=== PATIENT | male | born 1960 | race Caucasian/White ===

== ENCOUNTER 2022-01-22 14:24 | Emergency (ER) | payer SELFPAY ==
[2022-01-22 14:50] LABS: Absolute Lymphocytes (CBC) 2.1 K/uL (0.7-4.9); Hematocrit 42.9 % (39.6-49.0); Lymphocytes % 19.6 % (15.3-44.8); RBC Red Blood Cell Count 4.66 M/uL (4.33-5.43)
[2022-01-22 14:51] LABS: Protime INR 1.02
[2022-01-22 15:00] LABS: Albumin 3.6 g/dL (3.4-5.0); BUN Blood Urea Nitrogen 15 mg/dL (7-18); Bicarbonate 26 mmol/L (21-32); Glomerular Filtration Rate 48 ml/min (=/>90); Glucose Level 91 mg/dL (74-106); Sodium Level 139 mmol/L (136-145)
[2022-01-22 15:01] LABS: AST/SGOT 22 U/L (15-37); Bilirubin Direct < 0.1 mg/dL (0-0.2); Magnesium 2.1 mg/dL (1.8-2.4); Potassium 4.1 mmol/L (3.5-5.1)
[2022-01-22] MEDS ORDERED: FOLIC ACID 5 MG/ML VIAL ONE (15:04)
[2022-01-22] MEDS ORDERED: NA CHLORIDE 0.9% 1,000 ML ONE ×2 (15:04→16:13)
--- NOTE | 2022-01-22 15:04 | RAD REPORT ---
EXAM DESCRIPTION: CT - Ct Stroke Brain Wo Cont - 01/22/2022 2:54 pm CLINICAL HISTORY: Slurred speech COMPARISON: none TECHNIQUE: Computed axial tomography of the head was obtained. All CT scans are performed using dose optimization technique as appropriate and may include automated exposure control or mA/KV adjustment according to patient size. FINDINGS: An intracranial bleed is not seen . The ventricles are normal in caliber. No extra-axial fluid collection is noted. 2.5 centimeter low-density area right frontal lobe. 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 IMPRESSION: 2.5 centimeter low-density area right frontal lobe has more of the appearance of being a n old than acute infarction. If patient continues to have symptoms to suggest an acute infarct MRI of the brain would be recommend ed. Fred of the emergency room was notified at 2:39 p.m. January 22, 2022
[2022-01-22 15:06] LABS: ALT/SGPT 26 U/L (12-78); Alkaline Phosphatase 66 U/L (45-117); Bilirubin Total 0.3 mg/dL (0.2-1.0); NT PRO-BNP 136 pg/mL (<125); Protein, Total 6.9 g/dL (6.4-8.2)
--- OUTSIDE RECORDS SUMMARY | 2022-01-22 15:15 | XMS REPORT | Continuity of Care Document ---
:[address] [facility] t Address [address] [place] [address] Care Team Providers Name Role Phone Pcp, Does Not Have A Primary Care Physician RIDGE Attending Clinician Unavailable Ridge PIÑA Attending Clinician Doctor Unassigned, Name Attending Clinician Unavailable Juanito Alvarado DO Attending Clinician Nikhil PIÑA Attending Clinician Unavailable Payers Payer Name Policy Type Policy Number Effective Date Expiration Date S ource Problems Condition Condition Condition Status Onset Resolution Last Treating Co mments Source Name Details Category Date Date Treatment Clinician Date Coronary Coronary Disease Active Unive rs artery artery 01-13 ity of disease disease 00:00: [place] involving involving 00 [facility] [place] coronary coronary artery of artery of [place] heart heart without without angina angina pectoris pectoris Atrial Atrial Disease Active [facility] fibrillati fibrillati -17 it y of on, on, 00:00: [place] unspecifie unspecifie 00 Me dical d type d type Branch Tobacco Tobacco Disease Active [facility] use use -17 ity of 00:00: [place] 00 Medical Branch Tobacco Tobacco Disease Active [facility] use use - ity of 00:00: [place] 00 Medical Branch Coronary Coronary Disease Active 2017-0 Unive rs artery artery 5-17 ity of disease disease 00:00: [place] involving involving 00 [facility] [place] coronary coronary artery of artery of [place] heart heart without without angina angina pectoris pectoris Allergies, Adverse Reactions, Alerts Allergy Allergy Status Severity Reaction(s) Onset Inactive Treating Comm ents Source Name Type Date Date Clinician No Known DA Active [facility] Allergie 5-12 Clear s 00:00: [place] 00 [facility] NO KNOWN Drug Active Univers ALLERGIE Class [facility]y of [facility] [place] [facility] [place] Social History Social Habit Start Date Stop Date Quantity Comments Source Exposure to Not sure [facility] SARS-CoV-2 Medical Branch (event) Tobacco use and 2018-10-12 2018-10-12 Current user Univers [facility] exposure 00:00:00 00:00:00 Medical Branch Sex Ass[birth year] [facility] 00:00:00 00:00:00 Medical Branch Smoking Status Start Date Stop Date Source Current every day [facility]oker 2018[facility]10[facility]12 [facility] F[facility] Start Stop Current Ordering Indication Dosage Frequency Signature Comments Components Source Medication Medication Date Date Medication? Clinician (SIG) Name Name lisinopriL 2020-08 Yes [id number] 20mg Take 1 U nivers (PRINIVIL) 1-09 tablet by ity of 20 mg 00:00: mouth [place] tablet 00 daily. Medical Please Branch keep next follow up appointmen t for future refills. lisinopriL 2020-08 Yes [id number] 20mg Take 1 U nivers (PRINIVIL) 1-09 tablet by ity of 20 mg 00:00: mouth [place] tablet 00 daily. Medical Please Branch keep next follow up appointmen t for future refills. lisinopriL 2020-08 Yes [id number] 20mg Take 1 U nivers (PRINIVIL) 1-09 tablet by ity of 20 mg 00:00: mouth [place] tablet 00 daily. Medical Please Branch keep next follow up appointmen t for future refills. pantoprazol Yes 40mg Take 1 Univ ers e 40 mg EC 8-23 tablet by ity of tablet 00:00: mouth [place] 00 daily. Medical Branch pantoprazol Yes 40mg Take 1 Univ ers e 40 mg EC 8-23 tablet by ity of tablet 00:00: mouth daily. Medical Branch pantoprazol 2021-0 Yes 40mg Take 1 Univ ers e 40 mg EC 8-23 tablet by ity of tablet 00:00: mouth daily. Medical Branch pantoprazol 2020-0 Yes 40mg Take 1 Univ ers e 40 mg EC 8-23 tablet by ity of tablet 00:00: mouth daily. Medical Branch clopidogreL 1-0 Yes TAKE 1 Univ ers 75 mg 7-05 TABLET BY ity of tablet 00:00: MOUTH ONCE DAILY Medical Branch clopidogreL 2021-0 Yes TAKE 1 Univ ers 75 mg 7-05 TABLET BY ity of tablet 00:00: MOUTH ONCE DAILY Medical Branch clopidogreL 1-0 Yes TAKE 1 Univ ers 75 mg 7-05 TABLET BY ity of tablet 00:00: MOUTH ONCE DAILY Medical Branch clopidogreL 1-0 Yes TAKE 1 Univ ers 75 mg 7-05 TABLET BY ity of tablet 00:00: MOUTH ONCE DAILY Medical Branch clopidogreL 1-0 Yes TAKE 1 Univ ers 75 mg 7-05 TABLET BY ity of tablet 00:00: MOUTH ONCE DAILY Medical Branch clopidogreL 2021-0 Yes TAKE 1 Univ ers 75 mg 7-05 TABLET BY ity of tablet 00:00: MOUTH ONCE DAILY Medical Branch clopidogreL 2021-0 Yes TAKE 1 Univ ers 75 mg 7-05 TABLET BY ity of tablet 00:00: MOUTH ONCE DAILY Medical Branch clopidogreL 1-0 Yes TAKE 1 Univ ers 75 mg 4-08 TABLET BY ity of tablet 00:00: MOUTH ONCE DAILY Medical Branch clopidogreL 2021-0 2021- No TAKE 1 Uni vers 75 mg 4-08 07-05 TABLET BY ity of tablet 00:00: [place]CE [place] DA[place] [facility] carvediloL 2020-0 Yes [id number] 6.25mg Take 2 Univers 3.125 mg 8-13 tablets by ity o f tablet 00:00: mouth (two) Medical times Branch daily with meals. carvediloL 2020-0 Yes [id number] 6.25mg Take 2 Univers 3.125 mg 8-13 tablets by ity o f tablet 00:00: mouth (two) Medical times Branch daily with meals. carvediloL 2020-0 Yes [id number] 6.25mg Take 2 Univers 3.125 mg 8-13 tablets by ity o f tablet 00:00: mouth (two) Medical times Branch daily with meals. carvediloL 2020-0 Yes [id number] 6.25mg Take 2 [facility] 3.125 mg 8-13 tablets by ity o f tablet 00:00: mouth (two) Medical times Branch daily with meals. carvediloL 2020-0 Yes [id number] 6.25mg Take 2 Univers 3.125 mg 8-13 tablets by ity o f tablet 00:00: mouth (two) Medical times Branch daily with meals. carvediloL 2020-0 Yes [id number] 6.25mg Take 2 Univers 3.125 mg 8-13 tablets by ity o f tablet 00:00: mouth (two) Medical times Branch daily with meals. carvediloL 2020-0 Yes [id number] 6.25mg Take 2 Univers 3.125 mg 8-13 tablets by ity o f tablet 00:00: mouth (two) Medical times Branch daily with meals. carvediloL 2020-0 Yes [id number] 6.25mg Take 2 Univers 3.125 mg 8-13 tablets by ity o f tablet 00:00: mouth (two) Medical times Branch daily with meals. carvediloL 2020-0 Yes [id number] 6.25mg Take 2 Univers 3.125 mg 8-13 tablets by ity o f tablet 00:00: mouth (two) Medical times Branch daily with meals. carvediloL 2020-0 Yes [id number] 6.25mg Take 2 Univers 3.125 mg 8-13 tablets by ity o f tablet 00:00: mouth (two) Medical times Branch daily with meals. carvediloL 2020-0 Yes [id number] 6.25mg Take 2 Univers 3.125 mg 8-13 tablets by ity o f tablet 00:00: mouth (two) Medical times Branch daily with meals. carvediloL 2020-0 Yes [id number] 6.25mg Take 2 Univers 3.125 mg 8-13 tablets by ity o f tablet 00:00: mouth (two) Medical times Branch daily with meals. carvediloL 2020-0 Yes [id number] 6.25mg Take 2 Univers 3.125 mg 8-13 tablets by ity o f tablet 00:00: mouth 2 (two) Medical times Branch daily with meals. carvediloL 2020-0 Yes [id number] 6.25mg Take 2 Univers 3.125 mg 8-13 tablets by ity o f tablet 00:00: mouth 2 (two) Medical times Branch daily with meals. carvediloL 2020-0 Yes [id number] 6.25mg Take 2 Univers 3.125 mg 8-13 tablets by ity o f tablet 00:00: mouth 2 (two) Medical times Branch daily with meals. pantoprazol 2020-0 Yes 40mg Take 1 Univ ers e 40 mg EC 7-28 tablet by ity of tablet 00:00: mouth [place] 00 daily. Medical Branch atorvastati 2020-0 Yes 80mg Take 1 Univ ers n 80 mg 7-28 tablet by ity of tablet 00:00: mouth at [place] 00 bedtime. Medical Branch clopidogreL 2020-0 Yes TAKE 1 Univ ers 75 mg 7-28 TABLET BY ity of tablet 00:00: MOUTH ONCE [place] 00 DAILY Medical Branch metoprolol 2020-0 Yes TAKE 1 Unive rs succinate 7-28 TABLET BY ity o f XL 25 mg 24 00:00: MOUTH ONCE [place] hr tablet 00 DAILY Medical Branch lisinopril 2020-0 Yes 20mg Take 1 Unive rs (PRINIVIL) 7-28 tablet by ity of 20 mg 00:00: mouth [place] tablet 00 daily. Medical Branch aspirin 81 2020-0 Yes 81mg Take 1 Unive rs mg EC 7-28 tablet by ity of tablet 00:00: mouth [place] 00 daily. Medical Branch pantoprazol 2020-0 Yes 40mg Take 1 Univ ers e 40 mg EC 7-28 tablet by ity of tablet 00:00: mouth [place] 00 daily. Medical Branch atorvastati 2020-0 Yes 80mg Take 1 Univ ers n 80 mg 7-28 tablet by ity of tablet 00:00: mouth at [place] 00 bedtime. Medical Branch clopidogreL 2020-0 Yes TAKE 1 Univ ers 75 mg 7-28 TABLET BY ity of tablet 00:00: MOUTH ONCE [place] 00 DAILY Medical Branch metoprolol 2020-0 Yes TAKE 1 Unive rs succinate 7-28 TABLET BY ity o f XL 25 mg 24 00:00: MOUTH ONCE [place] hr tablet 00 DAILY Medical Branch lisinopril 2020-0 Yes 20mg Take 1 Unive rs (PRINIVIL) 7-28 tablet by ity of 20 mg 00:00: mouth [place] tablet 00 daily. Medical Branch aspirin 81 2020-0 Yes 81mg Take 1 Unive rs mg EC 7-28 tablet by ity of tablet 00:00: mouth [place] 00 daily. Medical Branch pantoprazol 2020-0 Yes 40mg Take 1 Univ ers e 40 mg EC 7-28 tablet by ity of tablet 00:00: mouth [place] 00 daily. Medical Branch atorvastati 2020-0 Yes 80mg Take 1 Univ ers n 80 mg 7-28 tablet by ity of tablet 00:00: mouth at [place] 00 bedtime. Medical Branch clopidogreL 2020-0 Yes TAKE 1 Univ ers 75 mg 7-28 TABLET BY ity of tablet 00:00: MOUTH ONCE [place] 00 DAILY Medical Branch metoprolol 2020-0 Yes TAKE 1 Unive rs succinate 7-28 TABLET BY ity o f XL 25 mg 24 00:00: MOUTH ONCE [place] hr tablet 00 DAILY Medical Branch lisinopril 2020-0 Yes 20mg Take 1 Unive rs (PRINIVIL) 7-28 tablet by ity of 20 mg 00:00: mouth [place] tablet 00 daily. Medical Branch aspirin 81 2020-0 Yes 81mg Take 1 Unive rs mg EC 7-28 tablet by ity of tablet 00:00: mouth [place] 00 daily. Medical Branch pantoprazol 2020-0 Yes 40mg Take 1 Univ ers e 40 mg EC 7-28 tablet by ity of tablet 00:00: mouth [place] 00 daily. Medical Branch atorvastati 2020-0 Yes 80mg Take 1 Univ ers n 80 mg 7-28 tablet by ity of tablet 00:00: mouth at [place] 00 bedtime. Medical Branch clopidogreL 2020-0 Yes TAKE 1 Univ ers 75 mg 7-28 TABLET BY ity of tablet 00:00: MOUTH ONCE [place] 00 DAILY Medical Branch metoprolol 2020-0 Yes TAKE 1 Unive rs succinate 7-28 TABLET BY ity o f XL 25 mg 24 00:00: MOUTH ONCE [place] hr tablet 00 DAILY Medical Branch lisinopril 2020-0 Yes 20mg Take 1 Unive rs (PRINIVIL) 7-28 tablet by ity of 20 mg 00:00: mouth [place] tablet 00 daily. Medical Branch aspirin 81 2020-0 Yes 81mg Take 1 Unive rs mg EC 7-28 tablet by ity of tablet 00:00: mouth [place] 00 daily. Medical Branch pantoprazol 2020-0 Yes 40mg Take 1 Univ ers e 40 mg EC 7-28 tablet by ity of tablet 00:00: mouth [place] 00 daily. Medical Branch atorvastati 2020-0 Yes 80mg Take 1 Univ ers n 80 mg 7-28 tablet by ity of tablet 00:00: mouth at [place] 00 bedtime. Medical Branch clopidogreL 2020-0 Yes TAKE 1 Univ ers 75 mg 7-28 TABLET BY ity of tablet 00:00: MOUTH ONCE [place] 00 DAILY Medical Branch lisinopril 2020-0 Yes 20mg Take 1 Unive rs (PRINIVIL) 7-28 tablet by ity of 20 mg 00:00: mouth [place] tablet 00 daily. Medical Branch aspirin 81 2020-0 Yes 81mg Take 1 Unive rs mg EC 7-28 tablet by ity of tablet 00:00: mouth [place] 00 daily. Medical Branch pantoprazol 2020-0 Yes 40mg Take 1 Univ ers e 40 mg EC 7-28 tablet by ity of tablet 00:00: mouth [place] 00 daily. Medical Branch atorvastati 2020-0 Yes 80mg Take 1 Univ ers n 80 mg 7-28 tablet by ity of tablet 00:00: mouth at [place] 00 bedtime. Medical Branch clopidogreL 2020-0 Yes TAKE 1 Univ ers 75 mg 7-28 TABLET BY ity of tablet 00:00: MOUTH ONCE [place] 00 DAILY Medical Branch lisinopril 2020-0 Yes 20mg Take 1 Unive rs (PRINIVIL) 7-28 tablet by ity of 20 mg 00:00: mouth [place] tablet 00 daily. Medical Branch aspirin 81 2020-0 Yes 81mg Take 1 Unive rs mg EC 7-28 tablet by ity of tablet 00:00: mouth [place] 00 daily. Medical Branch pantoprazol 2020-0 Yes 40mg Take 1 Univ ers e 40 mg EC 7-28 tablet by ity of tablet 00:00: mouth [place] 00 daily. Medical Branch atorvastati 2020-0 Yes 80mg Take 1 Univ ers n 80 mg 7-28 tablet by ity of tablet 00:00: mouth at [place] 00 bedtime. Medical Branch clopidogreL 2020-0 Yes TAKE 1 Univ ers 75 mg 7-28 TABLET BY ity of tablet 00:00: MOUTH ONCE [place] 00 DAILY Medical Branch lisinopril 2020-0 Yes 20mg Take 1 Unive rs (PRINIVIL) 7-28 tablet by ity of 20 mg 00:00: mouth [place] tablet 00 daily. Medical Branch aspirin 81 2020-0 Yes 81mg Take 1 Unive rs mg EC 7-28 tablet by ity of tablet 00:00: mouth [place] 00 daily. Medical Branch pantoprazol 2020-0 Yes 40mg Take 1 Univ ers e 40 mg EC 7-28 tablet by ity of tablet 00:00: mouth [place] 00 daily. Medical Branch atorvastati 2020-0 Yes 80mg Take 1 Univ ers n 80 mg 7-28 tablet by ity of tablet 00:00: mouth at [place] 00 bedtime. Medical Branch clopidogreL 2020-0 Yes TAKE 1 Univ ers 75 mg 7-28 TABLET BY ity of tablet 00:00: MOUTH ONCE [place] 00 DAILY Medical Branch lisinopril 2020-0 Yes 20mg Take 1 Unive rs (PRINIVIL) 7-28 tablet by ity of 20 mg 00:00: mouth [place] tablet 00 daily. Medical Branch aspirin 81 2020-0 Yes 81mg Take 1 Unive rs mg EC 7-28 tablet by ity of tablet 00:00: mouth [place] 00 daily. Medical Branch pantoprazol 2020-0 Yes 40mg Take 1 Univ ers e 40 mg EC 7-28 tablet by ity of tablet 00:00: mouth [place] 00 daily. Medical Branch atorvastati 2020-0 Yes 80mg Take 1 Univ ers n 80 mg 7-28 tablet by ity of tablet 00:00: mouth at [place] 00 bedtime. Medical Branch clopidogreL 2020-0 Yes TAKE 1 Univ ers 75 mg 7-28 TABLET BY ity of tablet 00:00: MOUTH ONCE [place] 00 DAILY Medical Branch lisinopril 2020-0 Yes 20mg Take 1 Unive rs (PRINIVIL) 7-28 tablet by ity of 20 mg 00:00: mouth [place] tablet 00 daily. Medical Branch aspirin 81 2020-0 Yes 81mg Take 1 Unive rs mg EC 7-28 tablet by ity of tablet 00:00: mouth [place] 00 daily. Medical Branch pantoprazol 2020-0 Yes 40mg Take 1 Univ ers e 40 mg EC 7-28 tablet by ity of tablet 00:00: mouth [place] 00 daily. Medical Branch atorvastati 2020-0 Yes 80mg Take 1 Univ ers n 80 mg 7-28 tablet by ity of tablet 00:00: mouth at [place] 00 bedtime. Medical Branch lisinopril 2020-0 Yes 20mg Take 1 Unive rs (PRINIVIL) 7-28 tablet by ity of 20 mg 00:00: mouth [place] tablet 00 daily. Medical Branch aspirin 81 2020-0 Yes 81mg Take 1 Unive rs mg EC 7-28 tablet by ity of tablet 00:00: mouth [place] 00 daily. Medical Branch pantoprazol 2020-0 Yes 40mg Take 1 Univ ers e 40 mg EC 7-28 tablet by ity of tablet 00:00: mouth [place] 00 daily. Medical Branch atorvastati 2020-0 Yes 80mg Take 1 Univ ers n 80 mg 7-28 tablet by ity of tablet 00:00: mouth at [place] 00 bedtime. Medical Branch lisinopril 2020-0 Yes 20mg Take 1 Unive rs (PRINIVIL) 7-28 tablet by ity of 20 mg 00:00: mouth [place] tablet 00 daily. Medical Branch aspirin 81 2020-0 Yes 81mg Take 1 Unive rs mg EC 7-28 tablet by ity of tablet 00:00: mouth [place] 00 daily. Medical Branch pantoprazol 2020-0 Yes 40mg Take 1 Univ ers e 40 mg EC 7-28 tablet by ity of tablet 00:00: mouth [place] 00 daily. Medical Branch atorvastati 2020-0 Yes 80mg Take 1 Univ ers n 80 mg 7-28 tablet by ity of tablet 00:00: mouth at [place] 00 bedtime. Medical Branch lisinopril 2020-0 Yes 20mg Take 1 Unive rs (PRINIVIL) 7-28 tablet by ity of 20 mg 00:00: mouth [place] tablet 00 daily. Medical Branch aspirin 81 2020-0 Yes 81mg Take 1 Unive rs mg EC 7-28 tablet by ity of tablet 00:00: mouth [place] 00 daily. Medical Branch pantoprazol 2020-0 Yes 40mg Take 1 Univ ers e 40 mg EC 7-28 tablet by ity of tablet 00:00: mouth [place] 00 daily. Medical Branch atorvastati 2020-0 Yes 80mg Take 1 Univ ers n 80 mg 7-28 tablet by ity of tablet 00:00: mouth at [place] 00 bedtime. Medical Branch lisinopril 2020-0 Yes 20mg Take 1 Unive rs (PRINIVIL) 7-28 tablet by ity of 20 mg 00:00: mouth [place] tablet 00 daily. Medical Branch aspirin 81 2020-0 Yes 81mg Take 1 Unive rs mg EC 7-28 tablet by ity of tablet 00:00: mouth [place] 00 daily. Medical Branch pantoprazol 2020-0 Yes 40mg Take 1 Univ ers e 40 mg EC 7-28 tablet by ity of tablet 00:00: mouth [place] 00 daily. Medical Branch atorvastati 2020-0 Yes 80mg Take 1 Univ ers n 80 mg 7-28 tablet by ity of tablet 00:00: mouth at [place] 00 bedtime. Medical Branch lisinopril 2020-0 Yes 20mg Take 1 Unive rs (PRINIVIL) 7-28 tablet by ity of 20 mg 00:00: mouth [place] tablet 00 daily. Medical Branch aspirin 81 2020-0 Yes 81mg Take 1 Unive rs mg EC 7-28 tablet by ity of tablet 00:00: mouth [place] 00 daily. Medical Branch pantoprazol 2020-0 Yes 40mg Take 1 Univ ers e 40 mg EC 7-28 tablet by ity of tablet 00:00: mouth [place] 00 daily. Medical Branch atorvastati 2020-0 Yes 80mg Take 1 Univ ers n 80 mg 7-28 tablet by ity of tablet 00:00: mouth at [place] 00 bedtime. Medical Branch lisinopril 2020-0 Yes 20mg Take 1 Unive rs (PRINIVIL) 7-28 tablet by ity of 20 mg 00:00: mouth [place] tablet 00 daily. Medical Branch aspirin 81 2020-0 Yes 81mg Take 1 Unive rs mg EC 7-28 tablet by ity of tablet 00:00: mouth [place] 00 daily. Medical Branch pantoprazol 2020-0 Yes 40mg Take 1 Univ ers e 40 mg EC 7-28 tablet by ity of tablet 00:00: mouth [place] 00 daily. Medical Branch atorvastati 2020-0 Yes 80mg Take 1 Univ ers n 80 mg 7-28 tablet by ity of tablet 00:00: mouth at [place] 00 bedtime. Medical Branch lisinopril 2020-0 Yes 20mg Take 1 Unive rs (PRINIVIL) 7-28 tablet by ity of 20 mg 00:00: mouth [place] tablet 00 daily. Medical Branch aspirin 81 2020-0 Yes 81mg Take 1 Unive rs mg EC 7-28 tablet by ity of tablet 00:00: mouth [place] 00 daily. Medical Branch atorvastati 2020-0 Yes 80mg Take 1 Univ ers n 80 mg 7-28 tablet by ity of tablet 00:00: mouth at [place] 00 bedtime. Medical Branch aspirin 81 2020-0 Yes 81mg Take 1 Unive rs mg EC 7-28 tablet by ity of tablet 00:00: mouth [place] 00 daily. Medical Branch atorvastati 2020-0 Yes 80mg Take 1 Univ ers n 80 mg 7-28 tablet by ity of tablet 00:00: mouth at [place] 00 bedtime. Medical Branch aspirin 81 2020-0 Yes 81mg Take 1 Unive rs mg EC 7-28 tablet by ity of tablet 00:00: mouth [place] 00 daily. Medical Branch atorvastati 2020-0 Yes 80mg Take 1 Univ ers n 80 mg 7-28 tablet by ity of tablet 00:00: mouth at [place] 00 bedtime. Medical Branch aspirin 81 2020-0 Yes 81mg Take 1 Unive rs mg EC 7-28 tablet by ity of tablet 00:00: mouth [place] 00 daily. Medical Branch atorvastati 2020-0 Yes 80mg Take 1 Univ ers n 80 mg 7-28 tablet by ity of tablet 00:00: mouth at [place] 00 bedtime. Medical Branch clopidogreL 2020-0 Yes TAKE 1 Univ ers 75 mg 7-28 TABLET BY ity of tablet 00:00: MOUTH ONCE [place] 00 DAILY Medical Branch metoprolol 2020-0 Yes TAKE 1 Unive rs succinate 7-28 TABLET BY ity o f XL 25 mg 24 00:00: MOUTH ONCE [place] hr tablet 00 DAILY Medical Branch lisinopril 2020-0 Yes 20mg Take 1 Unive rs (PRINIVIL) 7-28 tablet by ity of 20 mg 00:00: mouth [place] tablet 00 daily. Medical Branch aspirin 81 2020-0 Yes 81mg Take 1 Unive rs mg EC 7-28 tablet by ity of tablet 00:00: mouth [place] 00 daily. Medical Branch pantoprazol 2020-0 Yes 40mg Take 1 Univ ers e 40 mg EC 7-28 tablet by ity of tablet 00:00: mouth [place] 00 daily. Medical Branch atorvastati 2020-0 Yes 80mg Take 1 Univ ers n 80 mg 7-28 tablet by ity of tablet 00:00: mouth at [place] 00 bedtime. Medical Branch clopidogreL 2020-0 Yes TAKE 1 Univ ers 75 mg 7-28 TABLET BY ity of tablet 00:00: MOUTH ONCE [place] 00 DAILY [facility] Branch metoprolol 2020-0 Yes TAKE 1 Unive rs succinate 7-28 TABLET BY ity o f XL 25 mg 24 00:00: MOUTH ONCE [place] hr tablet 00 DAILY [facility] Branch lisinopril 2020-0 Yes 20mg Take 1 Unive rs (PRINIVIL) 7-28 tablet by ity of 20 mg 00:00: mouth [place] tablet 00 daily. Medical Branch aspirin 81 2020-0 Yes 81mg Take 1 Unive rs mg EC 7-28 tablet by ity of tablet 00:00: mouth [place] 00 daily. [facility] Branch pantoprazol 2020-0 Yes 40mg Take 1 Univ ers e 40 mg EC 7-28 tablet by ity of tablet 00:00: mouth [place] 00 daily. [facility] Branch atorvastati 2020-0 Yes 80mg Take 1 Univ ers n 80 mg 7-28 tablet by ity of tablet 00:00: mouth at [place] 00 bedtime. [facility] Branch clopidogreL 2020-0 Yes TAKE 1 Univ ers 75 mg 7-28 TABLET BY ity of tablet 00:00: MOUTH ONCE [place] 00 DAILY [facility] Branch metoprolol 2020-0 Yes TAKE 1 Unive rs succinate 7-28 TABLET BY ity o f XL 25 mg 24 00:00: MOUTH ONCE [place] hr tablet 00 DAILY [facility] Branch lisinopril 2020-0 Yes 20mg Take 1 Unive rs (PRINIVIL) 7-28 tablet by ity of 20 mg 00:00: mouth [place] tablet 00 daily. [facility] Branch aspirin 81 2020-0 Yes 81mg Take 1 Unive rs mg EC 7-28 tablet by ity of tablet 00:00: mouth [place] 00 daily. [facility] Branch pantoprazol 2020-0 Yes 40mg Take 1 Univ ers e 40 mg EC 7-28 tablet by ity of tablet 00:00: mouth [place] 00 daily. [facility] Branch atorvastati 2020-0 Yes 80mg Take 1 Univ ers n 80 mg 7-28 tablet by ity of tablet 00:00: mouth at [place] 00 bedtime. [facility] Branch clopidogreL 2020-0 Yes TAKE 1 Univ ers 75 mg 7-28 TABLET BY ity of tablet 00:00: MOUTH ONCE [place] 00 DAILY [facility] Branch metoprolol 2020-0 Yes TAKE 1 Unive rs succinate 7-28 TABLET BY ity o f XL 25 mg 24 00:00: MOUTH ONCE [place] hr tablet 00 DAILY [facility] Branch lisinopril 2020- Yes 20mg Take 1 Unive rs (PRINIVIL) 03-26 tablet by ity of 20 mg 00:00: mouth [place] tablet 00 daily. Medical Branch aspirin 81 2020-0 Yes 81mg Take 1 Unive rs mg EC 03-26 tablet by ity of tablet 00:00: mouth [place] 00 daily. [facility] Branch lisinopril 2019-0 2020- No 20mg Take 1 Univ ers (PRINIVIL) 03-26 11-03 tablet by ity of 20 mg 00:00: 00:00 mouth [place] tablet 00 :00 daily. [facility] Branch pantoprazol 2020- No 40mg Take 1 Uni vers e 40 mg EC 03-26-21 tablet by ity of tablet 00:00: 00:00 mouth [place] 00 :00 daily. [facility] Branch clopidogreL 2019-0 2020- No TAKE 1 Uni vers 75 mg 03-26 04-08 TABLET BY ity of tablet 00:00: 00:00 MOUTH ONCE [place] 00 :00 DAILY [facility] metoprolol 2020-0 2020- No TAKE 1 Univ ers succinate 03-26 08-13 TABLET BY ity of XL 25 mg 24 00:00: 00:00 MOUTH ONCE [place] hr tablet 00 :00 DAILY [facility] Branch metoprolol 2020-0 2020- No TAKE 1 Univ ers succinate 03-26 08-13 TABLET BY ity of XL 25 mg 24 00:00: 00:00 MOUTH ONCE [place] hr tablet 00 :00 DAILY [facility] Branch metoprolol 2020-0 2020- No TAKE 1 Univ ers succinate 03-26 08-13 TABLET BY ity of XL 25 mg 24 00:00: 00:00 MOUTH ONCE [place] hr tablet 00 :00 DAILY [facility] Branch clopidogreL 2020-0 Yes TAKE 1 Univ ers 75 mg 4-23 TABLET BY ity of tablet 00:00: MOUTH ONCE 00 DAILY [facility] Branch clopidogreL 2020-0 Yes TAKE 1 Univ ers 75 mg 4-23 TABLET BY ity of tablet 00:00: MOUTH ONCE 00 DAILY [facility] Branch atorvastati 2020-0 Yes 80mg Take 1 Univ ers n 80 mg 4-23 tablet by ity of tablet 00:00: mouth at [place] 00 bedtime. [facility] Branch pantoprazol 2020-0 Yes 40mg Take 1 Univ ers e 40 mg EC 4-23 tablet by ity of tablet 00:00: mouth [place] 00 daily. [facility] clopidogreL 2020-0 Yes TAKE 1 Univ ers 75 mg 4-23 TABLET BY ity of tablet 00:00: MOUTH ONCE [place] 00 DAILY [facility] Branch atorvastati 2020-0 Yes 80mg Take 1 Univ ers n 80 mg 4-23 tablet by ity of tablet 00:00: mouth at [place] 00 bedtime. [facility] Branch pantoprazol 2020-0 Yes 40mg Take 1 Univ ers e 40 mg EC 4-23 tablet by ity of tablet 00:00: mouth [place] 00 daily. [facility] clopidogreL 2020-0 2020- No TAKE 1 Uni vers 75 mg 4-23 -28 TABLET BY ity of tablet 00:00: 00:00 MOUTH ONCE [place] 00 :00 DAILY [facility] atorvastati 2020-0 2020- No 80mg Take 1 Uni vers n 80 mg 4-23 -28 tablet by ity of tablet 00:00: 00:00 mouth at [place] 00 :00 bedtime. [facility] Branch pantoprazol 2020-0 2020- No 40mg Take 1 Uni vers e 40 mg EC 4-23 - tablet by ity of tablet 00:00: 00:00 mouth [place] 00 :00 daily. [facility] Branch clopidogreL 2020-0 2020- No TAKE 1 Uni vers 75 mg 4-23 04-23 TABLET BY ity of tablet 00:00: 00:00 MOUTH ONCE [place] 00 :00 DAILY [facility] clopidogreL 2020-0 2020- No TAKE 1 Uni vers 75 mg 4-23 04-23 TABLET BY ity of tablet 00:00: 00:00 MOUTH ONCE [place] 00 :00 DAILY [facility] metoprolol 2020-0 Yes TAKE 1 Unive rs succinate 2-10 TABLET BY ity o f XL 25 mg 24 00:00: MOUTH ONCE [place] hr tablet 00 DAILY [facility] Branch metoprolol 2020-0 Yes TAKE 1 Unive rs succinate 2-10 TABLET BY ity o f XL 25 mg 24 00:00: MOUTH ONCE [place] hr tablet 00 DAILY [facility] Branch metoprolol 2020-0 Yes TAKE 1 Unive rs succinate 2-10 TABLET BY ity o f XL 25 mg 24 00:00: MOUTH ONCE [place] hr tablet 00 DAILY [facility] Branch metoprolol 2020-0 Yes TAKE 1 Unive rs succinate 2-10 TABLET BY ity o f XL 25 mg 24 00:00: MOUTH ONCE [place] hr tablet 00 DAILY [facility] Branch metoprolol 2020- No TAKE 1 Univ ers succinate 2-10 07-28 TABLET BY ity of XL 25 mg 24 00:00: 00:00 MOUTH ONCE [place] hr tablet 00 :00 DAILY [facility] Branch clopidogrel 2018-08 Yes TAKE 1 Univ ers 75 mg 1-21 TABLET BY ity of tablet 00:00: MOUTH ONCE [place] 00 DAILY [facility] clopidogrel 2018-08 2020- No TAKE 1 Uni vers 75 mg 1-21 04-23 TABLET BY ity of tablet 00:00: 00[place] [facility] lisinopril Yes 20mg Take 1 Unive rs (PRINIVIL) 8-13 tablet by ity of 20 mg 00:00: mouth [place] tablet 00 daily. [facility] lisinopril Yes 20mg Take 1 Unive rs (PRINIVIL) 8-13 tablet by ity of 20 mg 00:00: mouth [place] tablet 00 daily. [facility] lisinopril Yes 20mg Take 1 Unive rs (PRINIVIL) 8-13 tablet by ity of 20 mg 00:00: mouth [place] tablet 00 daily. [facility] lisinopril Yes 20mg Take 1 Unive rs (PRINIVIL) 8-13 tablet by ity of 20 mg 00:00: mouth [place] tablet 00 daily. [facility] lisinopril Yes 20mg Take 1 Unive rs (PRINIVIL) 8-13 tablet by ity of 20 mg 00:00: mouth [place] tablet 00 daily. [facility] lisinopril 2020- No 20mg Take 1 Univ ers (PRINIVIL) 8-13 07-28 tablet by ity of 20 mg 00:00: 00:00 mouth [place] tablet 00 :00 daily. [facility] metoprolol Yes TAKE 1 Unive rs succinate 6-24 TABLET BY ity o f XL 25 mg 24 00:00: MOUTH ONCE [place] hr tablet 00 DAILY [facility] clopidogrel Yes TAKE 1 Univ ers 75 mg 6-24 TABLET BY ity of tablet 00:00: MOUTH ONCE [place] 00 DAILY [facility] metoprolol 2020- No TAKE 1 Univ ers succinate 6-24 02-10 TABLET BY ity of XL 25 mg 24 00:00: 00:00 MOUTH ONCE [place] hr tablet 00 :00 DAILY Medical Branch ASPIRIN 81 [id number] Yes TAKE 1 Unive rs mg EC 3-05 TABLET BY ity of tablet 00:00: MOUTH ONCE [place] DAILY Medical Branch ATORVASTATI 2019-0 Yes 80mg TAKE 1 Univ ers N 80 mg 3-05 TABLET BY ity of tablet 00:00: MOUTH AT [place] BEDTIME Medical Branch PANTOPRAZOL 2019-0 Yes TAKE 1 Univ ers E 40 mg EC 3-05 TABLET BY ity of tablet 00:00: MOUTH ONCE [place] DAILY [facility] Branch ASPIRIN 81 Yes TAKE 1 Unive rs mg EC 3-05 TABLET BY ity of tablet 00:00: MOUTH ONCE [place] DAILY [facility] Branch ATORVASTATI 2019 Yes 80mg TAKE 1 Univ ers N 80 mg 3-05 TABLET BY ity of tablet 00:00: MOUTH AT [place] BEDTIME Medical Branch PANTOPRAZOL 2019 Yes TAKE 1 Univ ers E 40 mg EC 3-05 TABLET BY ity of tablet 00:00: MOUTH ONCE [place] DAILY Medical Branch ASPIRIN 81 2019 Yes TAKE 1 Unive rs mg EC 3-05 TABLET BY ity of tablet 00:00: MOUTH ONCE [place] DAILY [facility] Branch ATORVASTATI 2019 Yes 80mg TAKE 1 Univ ers N 80 mg 3-05 TABLET BY ity of tablet 00:00: MOUTH AT [place] BEDTIME Medical Branch PANTOPRAZOL 2019 Yes TAKE 1 Univ ers E 40 mg EC 3-05 TABLET BY ity of tablet 00:00: MOUTH ONCE [place] DAILY [facility] Branch ASPIRIN 81 2019- Yes TAKE 1 Unive rs mg EC 3-05 TABLET BY ity of tablet 00:00: MOUTH ONCE [place] DAILY Medical Branch ASPIRIN 81 2019-0 Yes TAKE 1 Unive rs mg EC 3-05 TABLET BY ity of tablet 00:00: MOUTH ONCE [place] DAILY [facility] Branch ASPIRIN 81 2019-0 2020- No TAKE 1 Univ ers mg EC 3-05 07-28 TABLET BY ity of tablet 00:00: 00:00 MOUTH ONCE [facility] 00 :00 DAILY Medical Branch ATORVASTATI 2019-0 2020- No 80mg TAKE 1 Uni vers N 80 mg 3-05 04-23 TABLET BY ity of tablet 00:00: 00:00 MOUTH AT [place] 00 :00 BEDTIME Medical Branch PANTOPRAZOL 2019-0 2020- No TAKE 1 Uni vers E 40 mg EC 3-05 04-23 TABLET BY ity of tablet 00:00: 00:[place] [facility] LISINOPRIL 2018-0 2019- No TAKE 1 Univ ers 2.5 mg 11-01 TABLET BY ity of tablet 00:00: 00:[place] 00 [place] [facility] No known No [facility] medications [facility] No known No Univers medications [facility] Vital Signs Vital Name Observation Time Observation Value Comments Source Systolic blood 2020-04-11 19:28:00 128 mm[Hg] Univer sity of pressure [facility] Diastolic blood 2020-04-11 19:28:00 79 [facility]Hg[facility] 2020-04-11 19:28:00 73 /min [facility] Body temperature 2020-04-11 19:28:00 37.06 [facility] Respiratory rate 2020-04-11 19:28:00 18 /min [facility] Body height 2020-04-11 19:28:00 182.9 cm [facility] Body weight 2020-04-11 19:28:00 71.668 kg [facility] BMI 2020-04-11 19:28:00 21.43 [facility]m2 [facility] Oxygen saturation in 2020-04-11 19:28:00 97 /min [facility] blood by [facility] Pulse oximetry Branch Procedures Procedure Date / Time Performed Performing Clinician Sour e ASSIGNMENT OF BENEFITS 2020-04-11 19:12:25 Doctor Unassigned, No [facility] Encounters Start End Encounter Admission Attending Care Care Encounter Source Date/Time Date/Time Type Type Clinicians Facility Department ID 2021-09-04 2021-09-04 Outpatient R RIDGE [facility] [id number] Univers 08:30:00 08:30:00 PRAVEEN [id number] ity o f [facility] 2021-07-05 2021-07-05 Refill [place] AKHARSH 1.2.840.114 [id number] Univers 00:00:00 00:00:00 [facility] 350.1.13.10 i [place] [id number] [address] OFFICE [facility] 2021-07-05 2021-07-05 Refill [place] [facility] 1.2.840.114 [id number] Univers 00:00:00 00:00:00 [facility] HEALTH [id number] [id number] [id number] [address] OFFICE [facility] 2021-07-02 2021-07-02 Refill [place] [facility] 1.2.840.114 [id number] Univers 00:00:00 00:00:00 [facility] HEALTH 350.1.13.10 [id number] [id number] [address] OFFICE [facility] 2021-05-21 2021-05-21 Outpatient Kathia SABILLON [facility] [id number] Univers 14:30:00 14:30:00 LEONARD ity o f [facility] 2021-05-21 2021-05-21 Outpatient [facility] [id number] -[id number] Univers 13:30:00 13:30:00 [id number] ity of [facility] 2021-04-19 2021-04-19 Refill Doctor [facility] 1.2.840.114 [id number] Univers 00:00:00 00:00:00 Unassigned, Health 350.1.13.10 ity of [place] [id number] [address] Office [facility] 2021-04-18 2021-04-18 Refill [place] [facility] 1.2.840.114 [id number] Univers 00:00:00 00:00:00 [facility] Health 350.1.13.10 [place] [id number] [address] Office [facility] 2021-03-12 2021-03-12 Outpatient Kathia SABILLON [facility] [id number] -[id number] Univers 10:30:00 10:30:00 LEONARD [id number] ity o f [facility] 2021-03-07 2021-03-07 [facility] 1.2.840.114 [id number] Univers 00:00:00 00:00:00 [facility] 350.1.13.10 [id number] [id number] [address] Office [facility] 2021-02-28 2021-02-28 Telephone [place] [facility] [id number] Univers 00:00:00 00:00:00 [facility] 350.1.13.10 [id number] [id number] [address] Office [facility] 2020-12-05 2020-12-05 [facility] 1.2.840.114 [id number] Univers 00:00:00 00:00:00 [facility] 350.1.13.10 [id number] [phone] [address] Office [facility] 2020-12-04 2020-12-04 [facility] 1.2.840.114 [id number] Univers 00:00:00 00:00:00 [facility] 350.1.13.10 [id number] [id number] [address] Office [facility] 2020-11-09 2020-11-09 [facility] 1.2.840.114 [id number] Univers 00:00:00 00:00:00 Outreach Cm PRIMARY 350.1.13.10 i ty of [place] [facility] [id number] [address] 2020-07-11 2020-07-11 Outpatient Kathia SABILLON [facility] [id number] -[id number] Univers 14:00:00 14:00:00 [facility] [id number] kamala yu [facility] 2020-07-11 2020-07-11 Outpatient Kathia SABILLON [facility] [id number] Univers 14:00:00 14:00:00 LEONARD ity o f [facility] 2020-06-30 2020-06-30 Refill [place] [facility] 1.2.840.114 [id number] Univers 00:00:00 00:00:00 [facility] 350.1.13.10 [place] [id number] [address] Office Building 2020-04-23 2020-04-23 Telephone [place] [facility] [id number] Univers 00:00:00 00:00:00 [facility] 350.1.13.10 [place] [phone] [address] Office [facility] 2020-04-11 2020-04-11 Office [place] [facility] 1.2.840.114 [id number] Univers 14:13:08 14:57:43 Visit [facility] 350.1.13.10 [place] [id number] [address] Office [facility] 2020-04-11 2020-04-11 Outpatient Kathia SABILLON [facility] [id number] -[id number] Univers 14:30:00 14:30:00 LEONARD [id number] ity o f [facility] 2020-04-11 2020-04-11 Outpatient R RIDGE [facility] [id number] Univers 14:30:00 14:30:00 LEONARD ity o [facility] 2020-04-11 2020-04-11 Orders Doctor DERIAN 1.2.840.114 [id number] Univers 00:00:00 00:00:00 Only Unassigned, SARAH 350.1.13.10 ity of [place] H[facility]PITAL 4.2.7.2.686 Omar as [id number] [address] 2020-03-25 2020-03-25 Refays Tejeda [facility] 1.2.840.114 [id number] Univers 00:00:00 00:00:00 [place] SPECIALTY 350.1.13.10 ity [place] AT [id number] [address] 2020-03-25 2020-03-25 Refyas Sabillon [facility] 1.2.840.114 [id number] Univers 00:00:00 00:00:00 [facility] 350.1.13.10 [place] [id number] [address] 2020-03-25 2020-03-25 Telephone [place] [facility] 1.2.301.018 [id number] Univers 00:00:00 00:00:00 [facility] 350.1.13.10 [place] [id number] [address] 2020-03-25 2020-03-25 Refyas Tejeda [facility] 1.2.840.114 [id number] Univers 00:00:00 00:00:00 [place] SPECIALTY 350.1.13.10 ity of [place] AT [id number] [address] 2020-03-25 2020-03-25 Refyas Sabillon [facility] 1.2.840.114 [id number] Univers 00:00:00 00:00:00 [facility] 350.1.13.10 i [place] [id number] [address] 2020-03-25 2020-03-25 Refyas Tejeda [facility] 1.2.840.114 [id number] Univers 00:00:00 00:00:00 [place] SPECIALTY 350.1.13.10 ity of [place] [id number] [address] 2020-03-25 2020-03-25 Refyas Sabillon [facility] 1.2.840.114 [id number] Univers 00:00:00 00:00:00 [facility] 350.1.13.10 i ty of [place] 4.2.7.2.686 [place] [id number] [place] [address] Branch Office Building 2020-03-19 2020-03-19 Refyas Shantadoyle [facility] 1.2.840.114 [id number] Univers 00:00:00 00:00:00 [place] HEALTH 350.1.13.10 it [place]2.[place] [facility] [phone] [facility] Primary [facility] Branch Specialty Care 2020-03-19 2020-03-19 Refill [place] [facility] 1.2.840.114 [id number] Univers 00:00:00 00:00:00 [facility] 350.1.13.10 i ty of [place] 4.2.7.2.686 [place]in [place] [id number] [address] Office Building 2020-02-15 2020-02-15 [facility] [id number] Univers 00:00:00 00:00:00 [facility] 350.1.13.10 i ty of [place] 4.2.7.2.686 [place]in [place] [phone] [address] Office Building 2020-01-24 2020-01-24 Outpatient Kathia SABILLON [facility] [id number] -[id number] Univers 10:00:00 10:00:00 LEONARD [id number] itmarbella o gigi [facility] 2020-01-24 2020-01-24 Outpatient Kathia SABILLON [facility] [id number] Univers 10:00:00 10:00:00 LEONARD ity o f [facility] 2019-12-21 2019-12-21 Telephone Alvarezbogdan [facility] [id number] Univers 00:00:00 00:00:00 [facility] 350.1.13.10 [place] [id number] [address] Office Building 2019-12-21 2019-12-21 Telephone [facility] 1.2.049.606 [id number] Univers 00:00:00 00:00:00 [facility] 350.1.13.10 i ty of [place] 4.2.7.2.686 Eduin moreno [place] [id number] [facility] Medical [address] Branch Office Building 2019-11-22 2019-11-22 Outpatient R RIDGE [facility] [id number] -[id number] Univers 14:00:00 14:00:00 LEONARD [id number] ity o f [facility] 2019-10-09 2019-10-09 Telephone Nikhil [facility] [id number] Univers 00:00:00 00:00:00 [facility] 350.1.13.10 it y of [place] 4.2.7.2.686 [place] [facility] Friscobogdan s [facility] [id number] [facility] Primary & 059 Branch Specialty Care 2019-04-10 2019-04-10 Refill Nikhil [facility] 1.2.840.114 [id number] Univers 00:00:00 00:00:00 [place] SPECIALTY 350.1.13.10 ity of [facility] 4.2.7.2.686 [facility] AT [id number] Mt dical [address] Results Test Description Test Time Test Comments Results Result Comments Source CBC W/AUTO DIFF 2019-01-10 08:39:00 Test Item Value Reference Range Interpretation Comme nts WHITE BLOOD CELL (test code = WBC) 8.37 x10 3/uL 4.5-11.0 N RED BLOOD CELL (test code = RBC) 5.01 x10 6/uL 4.00-5.60 N HEMOGLOBIN (test code = HGB) 15.3 g/dL 12.5-16.9 N HEMATOCRIT (test code = HCT) 45.7 % 37.5-50.7 N MEAN CELL VOLUME (test code = MCV) 91.2 fL 81.0-99.0 N MEAN CELL HGB (test code = MCH) 30.5 pg 27.0-33.0 N MEAN CELL HGB CONCETRATION (test code = MCHC) 33.5 g/dL 33.0-37. 0 N RED CELL DISTRIBUTION WIDTH CV (test code = RDW) 13.9 % 11.5- 14.5 N RED CELL DISTRIBUTION WIDTH SD (test code = RDW-SD) 46.3 fL 37 .0-54.0 N PLATELET COUNT (test code = PLT) 339 x10 3/uL 150-400 N MEAN PLATELET VOLUME (test code = MPV) 9.2 fL 7.0-9.0 H NEUTROPHIL % (test code = NT%) 61.0 % 56.0-77.0 N IMMATURE GRANULOCYTE % (test code = IG%) 0.4 % 0.0-2.0 N LYMPHOCYTE % (test code = LY%) 25.0 % 14.0-32.0 N MONOCYTE % (test code = MO%) 9.4 % 4.8-9.0 H EOSINOPHIL % (test code = EO%) 3.5 % 0.3-3.7 N BASOPHIL % (test code = BA%) 0.7 % 0.0-2.0 N NUCLEATED RBC % (test code = NRBC%) 0.0 % 0-0 N NEUTROPHIL # (test code = NT#) 5.11 x10 3/uL 2.0-7.6 N IMMATURE GRANULOCYTE # (test code = IG#) 0.03 x10 3/uL 0.00-0.03 N LYMPHOCYTE # (test code = LY#) 2.09 x10 3/uL 1.0-3.8 N MONOCYTE # (test code = MO#) 0.79 x10 3/uL 0.1-0.8 N EOSINOPHIL # (test code = EO#) 0.29 x10 3/uL 0.0-0.2 H BASOPHIL # (test code = BA#) 0.06 x10 3/uL 0.0-0.2 N NUCLEATED RBC # (test code = NRBC#) 0.00 x10 3/uL 0.0-0.1 N MANUAL DIFF REQUIRED (test code = MDIFF) NO BASIC METABOLIC [id number] 07:51:00 Test Item Value Reference Range Interpretation Comments SODIUM (test code = NA) 139 mEq/L 134-147 N POTASSIUM (test code = 4.2 mEq/L 3.4-5.0 N K) CHLORIDE (test code = 109 mEq/L 100-108 H CL) CARBON DIOXIDE (test 23 mEq/L 21-33 N code = CO2) ANION GAP (test code = 11 0-20 N GAP) GLUCOSE (test code = 82 mg/dL 70-110 N GLU) BLOOD UREA NITROGEN 9 mg/dL 7-18 N (test code = BUN) GLOMERULAR FILTRATION 77.0 90-95 L Units of measure = RATE (test code = GFR) ml/mi n/1.73 m2 CREATININE (test code = 1.0 mg/dL 0.6-1.3 N CREAT) CALCIUM (test code = 8.3 mg/dL 8.0-10.5 N CA) COMPREHENSIVE METABOLIC [id number] 07:51:00 Test Item Value Reference Range Interpretation Comments TOTAL PROTEIN (test code = PROT) 6.8 g/dL 6.4-8.2 N ALBUMIN (test code = ALB) 3.40 g/dL 3.4-5.0 N BILIRUBIN TOTAL (test code = BILT) 0.50 mg/dL 0.0-1.0 SGOT/AST (test code = AST) 23 IUnit/L 15-37 N SGPT/ALT (test code = ALT) 27 IUnit/L 15-65 N ALKALINE PHOSPHATASE TOTAL (test 77 IUnit/L 20-125 N code = ALKP) [id number] 17:55:00 Test Item Value Reference Range Interpretation Comments GLUBED (test code = 102 MG/DL 70-110 N Performe d by certified GLUBED) 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 : 1960 Age/S: 58 / M [address] [place] [address] Unit #: [id number] Loc: [place] [id number] Phys: Jose F Andino PATCHER HELPER Acct: [id number] Dis Date: Status: ADM IN PHONE #: [phone] Exam Date: 01/08/2019 1151 FAX #: [phone] Reason: rt chest pain with distended veins rt arm EXAMS: CPTCODE: [id number] CT CHEST W/CONTRAST 81647 CT SCAN OF THE CHEST WITH CONTRAST: HISTORY: Acute Right chest pain. Distention of right arm veins. COMPARISON EXAMS: Right arm extremity ultrasound performed 01/08/2019. Chest x-ray from 01/08/2019. TECHNIQUE: Axial images were obtained from the lung apices to the lung bases following intravenous injection of 100 mL Isovue-300. Sagittal and coronal reconstructions were generated. DOSE: CT imaging performed at this location utilizes radiation dose optimization technique which includes one or more of the followin) Automated exposure control; 2) Adjustment of the mA and/or kV according to patient's size; 3) Use of iterative reconstruction techniques. DLP (mGy- cm): 664 FINDINGS: No acuteinfiltrates or effusions identified. A few peripheral blebs are identified in both upper lobes. Several, right lung parenchymal calcifications are identified. These are associated with several, small, calcified middle mediastinal and right hilar lymph nodes and compatible with previous granulomatous infection. No evidence of pleural fluid. A subtle, 6 mm pleural-based nodule is identified laterally in the right middle lobe (series 4, image 214).No gross macrocalcifications identified. Focal, benign-appearing pleural thickening is identified superiorly in the left major fissure (series 3 image 31). Specific attentionwas given to the level of the thoracic inlet. It do not see evidence of a mass or vascular com pression at the right costoclavicular space or evidence of thrombus in the superior venacava. The right subclavian vein was not well opacified at the time of imaging. Coronary artery calcifications are present. Calcifications are noted in the aortic arch and proximal cervical cerebral branches. The ascending aorta measures up to 3.8 cm in diameter. Imaging into the upper abdomen shows small splenic calcification but is otherwise unremarkable. Bone windows reveal degenerative disc disease but no suspicious blastic or lytic lesions. IMPRESSION: PAGE 1 Signed Report(CONTINUED) Name: ISABEL MONDRAGON [facility] : 1960 Age/S: 58 / M [address] [place] [address] Unit #: [id number] Loc: [place] [address] Phys: Jose F Andino PATCHER HELPER Acct: [id number] Dis Date: Status: ADM IN PHONE #: [phone] Exam Date: 01/08/2019 1151 FAX #: [phone] Reason: rt chest pain with distended veins rt arm EXAMS: CPT CODE: [id number] CT CHEST W/CONTRAST 79927 <Continued> 1. Evidence of previous granulomatous infection with right lung granulomata associated with calcified right hilar and middle mediastinal adenopathy. 2. 6 mm, nonspecific pleural-based nodule laterally in the right middle lobe as described above.Follow-up noncontrast CT scan of the chest is recommended in approximately 6 months to monitor for any significant change. 3. Underlying emphysematous changes with peripheral bleb formation in the upper lobes with apical pleural-parenchymal scarring. 4. Coronary artery calcifications. 5. Fusiform ectasia of the ascending aorta measuring up to 3.8 cm. 6. No evidence of abnormality at the level of the right thoracic inlet. 7.Otherwise unremarkable exam. FOR INTERNAL CODING PURPO SES ONLY RESULT CODE: NOD SL:01 at 1410 Reported and signed by: Alcides Yun M.D. CC: Jose F Andino NP; Chris Lopez MD Technologist:RT Sage(R) CTDI: DLP: Trnscb Date/Time: 01/09/2019 (1409) tBRANNON Orig Print D/T: S: 01/09/2019 (7003) PAGE 2 Signed ReportBASIC METABOLIC [id number] 08:06:00 Test Item Value Reference Range Interpretation Comments SODIUM (test code = 141 mEq/L 134-147 N NA) POTASSIUM (test code = 4.7 mEq/L 3.4-5.0 N SPECI MEN 1+ K) HEMOLYZED.Resul ts known to be adv ersely affected by hem olysis are: Potass ium Magnesium LDH Phosphorus CHLORIDE (test code = 111 mEq/L 100-108 H CL) CARBON DIOXIDE (test 25 mEq/L 21-33 N code = CO2) ANION GAP (test code = 10 0-20 N GAP) GLUCOSE (test code = 81 mg/dL 70-110 N GLU) BLOOD UREA NITROGEN 12 mg/dL 7-18 N (test code = BUN) GLOMERULAR FILTRATION 77.0 90-95 L Units of measure = RATE (test code = GFR) ml/mi n/1.73 m2 CREATININE (test code 1.0 mg/dL 0.6-1.3 N = CREAT) CALCIUM (test code = 8.0 mg/dL 8.0-10.5 N CA) [id number] 08:06:00 Test Item Value Reference Range Interpretation Comments PHOSPHOROUS (test code = PHOS) 4.0 mg/dL 2.5-4.9 N CBC W/AUTO [id number] 07:24:00 Test Item Value Reference Range Interpretation Comments WHITE BLOOD CELL (test code = 8.63 x10 3/uL 4.5-11.0 N WBC) RED BLOOD CELL (test code = 4.49 x10 6/uL 4.00-5.60 N RBC) HEMOGLOBIN (test code = HGB) 14.1 g/dL 12.5-16.9 N HEMATOCRIT (test code = HCT) 41.7 % 37.5-50.7 N MEAN CELL VOLUME (test code = 92.9 fL 81.0-99.0 MCV) MEAN CELL HGB (test code = MCH) 31.4 pg 27.0-33.0 N MEAN CELL HGB CONCETRATION 33.8 g/dL 33.0-37.0 N (test code = MCHC) RED CELL DISTRIBUTION WIDTH CV 14.7 % 11.5-14.5 H (test code = RDW) RED CELL DISTRIBUTION WIDTH SD 49.0 fL 37.0-54.0 N (test code = RDW-SD) PLATELET COUNT (test code = 333 x10 3/uL 150-400 N PLT) MEAN PLATELET VOLUME (test code 10.8 fL 7.0-9.0 H = MPV) NEUTROPHIL % (test code = NT%) 57.8 % 56.0-77.0 N IMMATURE GRANULOCYTE % (test 0.5 % 0.0-2.0 N code = IG%) LYMPHOCYTE % (test code = LY%) 27.2 % 14.0-32.0 N MONOCYTE % (test code = MO%) 9.5 % 4.8-9.0 H EOSINOPHIL % (test code = EO%) 4.2 % 0.3-3.7 H BASOPHIL % (test code = BA%) 0.8 % 0.0-2.0 N NUCLEATED RBC % (test code = 0.0 % 0-0 N NRBC%) NEUTROPHIL # (test code = NT#) 4.99 x10 3/uL 2.0-7.6 N IMMATURE GRANULOCYTE # (test 0.04 x10 3/uL 0.00-0.03 H code = IG#) LYMPHOCYTE # (test code = LY#) 2.35 x10 3/uL 1.0-3.8 N MONOCYTE # (test code = MO#) 0.82 x10 3/uL 0.1-0.8 H EOSINOPHIL # (test code = EO#) 0.36 x10 3/uL 0.0-0.2 H BASOPHIL # (test code = BA#) 0.07 x10 3/uL 0.0-0.2 N NUCLEATED RBC # (test code = 0.00 x10 3/uL 0.0-0.1 N NRBC#) MANUAL DIFF REQUIRED (test code NO = MDIFF) THROMBOPLASTIN TIME [id number] 06:54:00 Test Item Value Reference Range Interpretation Comments THROMBOPLASTIN TIME 36.4 Seconds 25.0-39.5 N Ther apeutic PARTIAL (test code = Range: 50.4 - 88.3 PTT) Seconds Effective 12/13/2018 [id number] 01:04:00 Test Item Value Reference Range Interpretation Comments TROPONIN-I < 0.015 ng/mL 0.000-0.045 N Negative: <= (test code = 0.045 Positive: TROPI) >= 0.046 Correl ation with serial results, other cardiac markers andclinical findings is nec essary to determine the clinicalsignifi cance of this result. Results using different metho dologies should not be c omparedto one another as andrew titative results may eunice y by method. COMMENTS: 3 troponins total (including troponin done in ED)[id number] 21:35:00 Test Item Value Reference Range Interpretation Comments TROPONIN-I < 0.015 ng/mL 0.000-0.045 N Negative: <= (test code = 0.045 Positive: TROPI) >= 0.046 Correl ation with serial results, other cardiac markers andclinical findings is nec essary to determine the clinicalsignifi cance of this result. Results using different metho dologies should not be c omparedto one another as andrew titative results may eunice y by method. COMMENTS: 3 troponins total (including troponin done in ED)B-TYPE NATRIURETIC [id number] 18:08:00 Test Item Value Reference Range Interpretation Comments B-TYPE NATRIURETIC PEPTIDE (test 19.3 PG/ML 0-100 N code = BNP) BASIC METABOLIC [id number] 18:06:00 Test Item Value Reference Range Interpretation Comments SODIUM (test code = NA) 139 mEq/L 134-147 N POTASSIUM (test code = 4.1 mEq/L 3.4-5.0 N K) CHLORIDE (test code = 108 mEq/L 100-108 N CL) CARBON DIOXIDE (test 26 mEq/L 21-33 N code = CO2) ANION GAP (test code = 9 0-20 N GAP) GLUCOSE (test code = 90 mg/dL 70-110 N GLU) BLOOD UREA NITROGEN 10 mg/dL 7-18 N (test code = BUN) GLOMERULAR FILTRATION 62.4 90-95 L Units of measure = RATE (test code = GFR) ml/mi n/1.73 m2 CREATININE (test code = 1.2 mg/dL 0.6-1.3 N CREAT) CALCIUM (test code = 8.1 mg/dL 8.0-10.5 N CA) HEPATIC FUNCTION [id number] 18:06:00 Test Item Value Reference Range Interpretation Comments TOTAL PROTEIN (test code = PROT) 7.2 g/dL 6.4-8.2 N ALBUMIN (test code = ALB) 3.80 g/dL 3.4-5.0 N BILIRUBIN TOTAL (test code = 0.30 mg/dL 0.0-1.0 N BILT) BILIRUBIN DIRECT (test code = < 0.10 MG/DL 0.0-0.30 N BILD) BILIRUBIN INDIRECT (test code = 0.20 MG/DL BILIND) SGOT/AST (test code = AST) 25 IUnit/L 15-37 N SGPT/ALT (test code = ALT) 30 IUnit/L 15-65 N ALKALINE PHOSPHATASE TOTAL (test 85 IUnit/L 20-125 N code = ALKP) [id number] 18:06:00 Test Item Value Reference Range Interpretation Comments LIPASE (test code = LIP) 194 IUnit/L 73-393 N [id number] 18:06:00 Test Item Value Reference Range Interpretation Comments TROPONIN-I < 0.015 ng/mL 0.000-0.045 N Negative: <= (test code = 0.045 Positive: TROPI) >= 0.046 Correl ation with serial results, other cardiac markers andclinical findings is nec essary to determine the clinicalsignifi cance of this result. Results using different metho dologies should not be c omparedto one another as andrew titative results may eunice y by method. - XR CHEST 1 [id number] 18:03:00 FAX: Cristhian Lambert MD [phone] [place]: St: REG Name: ISABEL MONDRAGON [facility] : 1960 Age/S: 58/M [address] [place] [address] Unit#: [id number] Loc: [place] [address] Phys: Cristhian Lambert MD Acct: [id number] Dis Date: Status: REG ER PHONE #: [phone] Exam Date: 01/08/2019 175 FAX #: [phone] Reason: Chest Pain EXAMS: CPT CODE: [id number] XR CHEST 1 V [id number] One view chest performed January 08, 2019 1744 hours. COMPARISON: None. CLINICAL HISTORY: Chest pain. DISCUSSION: Sin gle one view chest is submitted. Lungs are clear. Cardiomediastinal silhouette is normal in size. Atherosclerotic vascular calcifications are noted. No acute osseous abnormalities. IMPRESSION: No acute cardiopulmonary findings. at 1803 Reported and signed by: Rach Navarro M.D. CC: Cristhian Lambert MD Technologist: RT Norberto(Kathia) Trnscrd Date/Time/By: 01/08/2019 (206) : By: Jaqueline Orig Print D/T: S: 01/08/2019 (1805) PAGE 1 Signed Report- [employer] VEIN [id number] 17:52:00 Name: ISABEL MONDRAGON [facility] [place] : 1960 Age/S: 58 / M [address] [place] [address] Unit #: [id number] Loc: [place] [id number] Phys: Cristhian Lambert MD Acct: [id number] Dis Date: Status: REG ER PHONE #: [phone] Exam Date: 01/08/2019 1742 FAX #: [phone] Reason: rue pain, r/o rue dvt EXAMS: CPTCODE: [id number] [employer] VEIN UNI/LTD 11466 PROCEDURE: RIGHT UPPER EXTREMITY VENOUS DOPPLER INDICATION: 58 years Male, rue pain, r/o rue dvt. COMPARISON: None. TECHNIQUE: Sonographic evaluation of the right upperextremity veins is performed using high resolution B-mode imaging, along with pulse and color Doppler imaging. FINDINGS: On the right, the jugular vein shows normal compressibility and spontaneous color-flow. Subclavian vein show spontaneous color-flow. The axillary, brachial, basilic, cephalic, radial, and ulnar veins show normal compressibility and spontaneous color-flow. REFERENCE: DEEP VEINS: Internal jugular, subclavian, axillary, brachial, radial, and ulnar SUPERFICIAL: Basilic, cephalic IMPRESSION: Novenous thrombosis of the right upper extremity. SL: MAKI at 1752 Reported and signed by: Daniela Turner CC: Cristhian Lambert MD Technologist: Kae Root RDMS(AB)(OB) Trnscb Date/Time: 01/08/2019 (1751) [id number] Orig Print D/T: S: 01/08/2019 (7929) Probe: PAGE 1 Signed Report PROTHROMBIN [id number] 17:49:00 Test Item Value Reference Range Interpretation Comments PROTHROMBIN TIME 11.0 SECONDS 9.3-12.9 N PATIENT (test code = PTP) INTERNATIONAL NORMAL 1.0 0.8-1.2 N TARGET RATIO (test code = INR BY IN DICATION INR) Indication INR1. Prophyl axis of venous thrombos is 2.0 - 3. 0 (orthopedic ventura jose), Prophylaxis of venous thrombos is (other than hig h-risk surgery), Jovana tment of Deep Vein Thrombosis/Pulm onary Embolism, Preve ntion of systemic emb olism - Tissue heart va lves, Acute Myocardia l Infarction (to prevent systemic embo lism), Valvular heart disease, Atri al Fibrillation, Bileaflet mecha nical valve in aortic position.2. Mec hanical prosthetic valv es (high risk), 2.5 - 3.5 Presence of Lupus Anticoagu lant or Antiphospholi pid Antibodies, Pre vention of systemic e mbolism - Acute Myocard ial Infarction (t o prevent recurre nt infarct). THROMBOPLASTIN TIME [id number] 17:49:00 Test Item Value Reference Range Interpretation Comments THROMBOPLASTIN TIME 29.3 Seconds 25.0-39.5 N Ther apeutic PARTIAL (test code = Range: 50.4 - 88.3 PTT) Seconds Effective 12/13/2018 [id number] 17:49:00 Test Item Value Reference Range Interpretation Comments D-DIMER (test 341 ng/mlFEU <=500 N THROMBOSIS AND /OR PULMONARY code = EMBOLISM AND TH E CLINICAL DDIMER) CUT- OFF VALUE FOR EXCLUSION (500 ng/mL FEU) OF THESE CONDITIONSIS VA LIDATED BY THE MANUFACTURE R OF THE METHOD. A NEGAT MONSE D-DIMER RESULT WHEN COM BINED WITH A CLINICALASSESSM ENT OF LOW PRETEST PROBABI LITY HAS BEEN SHOWN TO HAVEA HIGH NEGATIVE PREDICTIVE VALU E OF DVT OR PE. D-DIMER BECK UES >500 ng/mL FEU ARE N OT DIAGNOSTIC FOR DVT, PEor D IC WITHOUT OTHER CONFIRMAT ORY TESTS AND APPROPRIATECLIN ICAL EUALUATIONS. CBC W/AUTO [id number] 17:38:00 Test Item Value Reference Range Interpretation Comments WHITE BLOOD CELL (test code = 11.21 x10 3/uL 4.5-11.0 H WBC) RED BLOOD CELL (test code = 4.87 x10 6/uL 4.00-5.60 N RBC) HEMOGLOBIN (test code = HGB) 15.1 g/dL 12.5-16.9 N HEMATOCRIT (test code = HCT) 43.7 % 37.5-50.7 N MEAN CELL VOLUME (test code = 89.7 fL 81.0-99.0 N MCV) MEAN CELL HGB (test code = 31.0 pg 27.0-33.0 N MCH) MEAN CELL HGB CONCETRATION 34.6 g/dL 33.0-37.0 N (test code = MCHC) RED CELL DISTRIBUTION WIDTH CV 14.0 % 11.5-14.5 N (test code = RDW) RED CELL DISTRIBUTION WIDTH SD 46.1 fL 37.0-54.0 N (test code = RDW-SD) PLATELET COUNT (test code = 359 x10 3/uL 150-400 N PLT) MEAN PLATELET VOLUME (test 9.0 fL 7.0-9.0 N code = MPV) NEUTROPHIL % (test code = NT%) 65.0 % 56.0-77.0 N IMMATURE GRANULOCYTE % (test 0.4 % 0.0-2.0 N code = IG%) LYMPHOCYTE % (test code = LY%) 23.2 % 14.0-32.0 N MONOCYTE % (test code = MO%) 8.4 % 4.8-9.0 N EOSINOPHIL % (test code = EO%) 2.3 % 0.3-3.7 N BASOPHIL % (test code = BA%) 0.7 % 0.0-2.0 N NUCLEATED RBC % (test code = 0.0 % 0-0 N NRBC%) NEUTROPHIL # (test code = NT#) 7.29 x10 3/uL 2.0-7.6 N IMMATURE GRANULOCYTE # (test 0.04 x10 3/uL 0.00-0.03 H code = IG#) LYMPHOCYTE # (test code = LY#) 2.60 x10 3/uL 1.0-3.8 N MONOCYTE # (test code = MO#) 0.94 x10 3/uL 0.1-0.8 H EOSINOPHIL # (test code = EO#) 0.26 x10 3/uL 0.0-0.2 H BASOPHIL # (test code = BA#) 0.08 x10 3/uL 0.0-0.2 N NUCLEATED RBC # (test code = 0.00 x10 3/uL 0.0-0.1 N NRBC#) MANUAL DIFF REQUIRED (test NO code = MDIFF)
--- NOTE | 2022-01-22 15:53 | RAD REPORT ---
EXAM DESCRIPTION: [facility] Single View01/22/2022 3:17 pm CLINICAL HISTORY: cough COMPARISON: none FINDINGS: Area scarring or subsegmental atelectasis within the left lung base. The remainder of the lungs appear clear of acute infiltrate. The heart is normal size
--- NOTE | 2022-01-22 16:02 | EDPHYS ---
Physician Documentation [facility] Name: Mark Jerez Age: 61 yrs Sex: Male : 1960 Arrival Date: 01/22/2022 Time: 14:38 Bed 3 Private MD: ED Physician Quique Fry HPI: 01/22 15:46 This 61 yrs old Male presents to ER via Wheelchair with complaints of S/S of olesya Possible Stroke. 15:46 This 61 yrs old Male presents to ER via Wheelchair with complaints of S/S of olesya Possible Stroke. 15:46 The patient's problem is reported as a facial droop, paresthesias, in left upper olesya extremity. Onset: The symptoms/episode began/occurred at 13:00. Duration: The episodes are intermittent. Context: the episode(s) was witnessed, by family, daughter. The symptoms are alleviated by nothing. The symptoms are aggravated by nothing. Associated signs and symptoms: Pertinent positives: headache. Severity of symptoms: At their worst the symptoms were mild moderate in the emergency department the symptoms have improved moderately. Patient's baseline: Neuro: alert and fully oriented. The patient has not experienced similar symptoms in the past. Historical: - Allergies: 14:41 No Known Allergies; vg1 - Home Meds: 14:41 Lisinopril Oral [Active]; vg1 - PMHx: 14:41 Myocardial infarction; Hypertensive disorder; vg1 - PSHx: 14:41 Stented artery; vg1 - Immunization history:: Client reports receiving the 2nd dose of the Covid vaccine. - Social history:: Smoking status: Patient reports the use of cigarette tobacco products, smokes one pack cigarettes per day. - Family history:: not pertinent. ROS: 15:46 Constitutional: Negative for fever, chills, and weight loss, Eyes: Negative for injury, olesya pain, redness, and discharge, ENT: Negative for injury, pain, and discharge, Neck: Negative for injury, pain, and swelling, Cardiovascular: Negative for chest pain, palpitations, and edema, Respiratory: Negative for shortness of breath, cough, wheezing, and pleuritic chest pain, Abdomen/GI: Negative for abdominal pain, nausea, vomiting, diarrhea, and constipation, Back: Negative for injury and pain, : Negative for injury, bleeding, discharge, and swelling, MS/Extremity: Negative for injury and deformity, Skin: Negative for injury, rash, and discoloration, Psych: Negative for depression, anxiety, suicide ideation, homicidal ideation, and hallucinations, Allergy/Immunology: Negative for hives, rash, and allergies, Endocrine: Negative for neck swelling, polydipsia, polyuria, polyphagia, and marked weight changes, Hematologic/Lymphatic: Negative for swollen nodes, abnormal bleeding, and unusual bruising. 15:46 Neuro: Positive for numbness, speech changes, weakness, of the dorsal aspect of left forearm, left wrist, left hand and palmar aspect of left forearm. Exam: 15:46 Radiologist reports: 2.5 cm low density area right frontal lobe olesya 15:46 Constitutional: This is a well developed, well nourished patient who is awake, alert, and in no acute distress. Head/Face: Normocephalic, atraumatic. Eyes: Pupils equal round and reactive to light, extra-ocular motions intact. Lids and lashes normal. Conjunctiva and sclera are non-icteric and not injected. Cornea within normal limits. Periorbital areas with no swelling, redness, or edema. ENT: Nares patent. No nasal discharge, no septal abnormalities noted. Tympanic membranes are normal and external auditory canals are clear. Oropharynx with no redness, swelling, or masses, exudates, or evidence of obstruction, uvula midline. Mucous membranes moist. Neck: Trachea midline, no thyromegaly or masses palpated, and no cervical lymphadenopathy. Supple, full range of motion without nuchal rigidity, or vertebral point tenderness. No Meningismus. Chest/axilla: Normal chest wall appearance and motion. Nontender with no deformity. No lesions are appreciated. Cardiovascular: Regular rate and rhythm with a normal S1 and S2. No gallops, murmurs, or rubs. Normal PMI, no JVD. No pulse deficits. Respiratory: Lungs have equal breath sounds bilaterally, clear to auscultation and percussion. No rales, rhonchi or wheezes noted. No increased work of breathing, no retractions or nasal flaring. Abdomen/GI: Soft, non-tender, with normal bowel sounds. No distension or tympany. No guarding or rebound. No evidence of tenderness throughout. Back: No spinal tenderness. No costovertebral tenderness. Full range of motion. Male : Normal genitalia with no discharge or lesions. Skin: Warm, dry with normal turgor. Normal color with no rashes, no lesions, and no evidence of cellulitis. MS/ Extremity: Pulses equal, no cyanosis. Neurovascular intact. Full, normal range of motion. Neuro: Awake and alert, GCS 15, oriented to person, place, time, and situation. Cranial nerves II-XII grossly intact. Motor strength 5/5 in all extremities. Sensory grossly intact. Cerebellar exam normal. Normal gait. Psych: Awake, alert, with orientation to person, place and time. Behavior, mood, and affect are within normal limits. 15:46 ECG was reviewed by the Attending Physician. Vital Signs: 14:27 BP 139 / 81; Pulse 82; Resp 20; Pulse Ox 97% on R/A; Weight 72.57 kg; Height 6 ft. 0 vg1 in. (182.88 cm); Pain 0/10; 14:30 BP 132 / 77; Pulse 76; Resp 18; Pulse Ox 96% ; Pain 0/10; jh6 15:00 BP 134 / 81; Pulse 85; Resp 18; Pulse Ox 100% ; Pain 0/10; jh6 15:47 BP 144 / 85; Pulse 76; Resp 17; Pulse Ox 97% ; Pain 0/10; jh6 14:27 Body Mass Index 21.70 (72.57 kg, 182.88 cm) vg1 NIH Stroke Scale Scores: 14:47 NIHSS Score: 0 burgess 16:06 NIHSS Score: 0 olesya MDM: 14:41 Patient medically screened. olesya 15:54 Differential diagnosis: CVA, TIA, metabolic disorder. Data reviewed: vital signs, doctors hospital nurses notes, lab test result(s), EKG, radiologic studies, CT scan, plain films. Data interpreted: bus monitor: rate is 76 beats/min, rhythm is regular, Pulse oximetry: on room air is 97 %. Test interpretation: by ED physician or midlevel provider: ECG, plain radiologic studies. Counseling: I had a detailed discussion with the patient and/or guardian regarding: the historical points, exam findings, and any diagnostic results supporting the discharge/admit diagnosis, lab results, radiology results, the need to transfer to another facility. Physician consultation: Rey Lambert MD after a discussion of the case, a recommendation for transfer for higher level of care is made. 15:56 ED course: stroke symptoms on / off over two weeks, speech and left hand and arm, ct olesya not tottally negative, will hold tnk at this time per Rina. 01/22 14:45 Order name: Basic Metabolic Panel; [facility] 14:45 Order name: CBC with Diff; Complete [facility]: [facility] 01/22 14:45 Order name: LFT's; Complete Time: [facility]: [facility] 01/22 14:45 Order name: Magnesium; Complete Time: [facility]: [facility] 01/22 14:45 Order name: NT PRO-BNP; Complete [facility]: [facility]: [facility] 01/22 14:45 Order name: PT-INR; Complete Time: [facility]: [facility] 01/22 14:45 Order name: Troponin HS; Complete Time: [facility]: [facility] 01/22 14:45 Order name: XRAY Chest (1 view); Complete Time: 16:06 [facility] 01/22 14:45 Order name: CT Stroke Brain w/o Contrast; Complete Time: [facility]: [facility] 01/22 14:45 Order name: CT Head Angio; Complete Time: 16:32 [facility] 01/22 14:45 Order name: CT Neck Angio; Complete Time: 16:32 [facility] 01/22 14:45 Order name: SARS-COV-2 RT PCR (Document "Date of Onset" if Symptomatic); Complete [facility]: [facility]01/22 16:16 Order name: Urine Dipstick-Ancillary; Complete Time: 16:32 [facility] 01/22 14:45 Order name: EKG; Complete Time: 14:45 [facility] 01/22 14:45 Order name: Cardiac monitoring; Complete Time: 15:04 [facility] 01/22 14:45 Order name: EKG - Nurse/Tech; Complete Time: 16:16 [facility] 01/22 14:45 Order name: IV Saline Lock; Complete Time: 15:04 [facility] 01/22 14:45 Order name: Labs collected and sent; Complete Time: 15:04 [facility] 01/22 14:45 Order name: O2 Per Protocol; Complete Time: 15:04 [facility] 01/22 14:45 Order name: O2 Sat Monitoring; Complete Time: 15:04 [facility] 01/22 14:45 Order name: Urine Dipstick-Ancillary (obtain specimen); Complete Time: 16:16 olesya EC:46 Rate is 86 beats/min. Rhythm is regular. QRS [place] is Normal. [place] interval is normal. QRS olesya interval is normal. QT interval is normal. No Q waves. T waves are Normal. No ST changes noted. Clinical impression: NSR w/ Non-specific ST/T Changes and No evidence of ischemia. Interpreted by me. Reviewed by me. Administered Medications: 15:03 Drug: NS 0.9% 1000 ml Route: IV; Rate: 1 bolus; Site: right antecubital; burgess 17:19 Follow up: IV Status: Completed infusion burgess 15:03 Dru mg of (foLIC Acid 1 mg, NS 0.9% 10 ml) Route: IVPB; Site: right antecubital; burgess 17:19 Follow up: IV Status: Completed infusion burgess 15:39 CANCELLED (Duplicate Order): Tenecteplase 18 mg IV at per protocol once olesya 16:15 Drug: Aspirin Chewable Tablet 162 mg Route: PO; burgess 16:16 Follow up: Response: No adverse reaction burgess 16:15 Drug: PlaVIX (clopidogrel) 75 mg Route: PO; burgess 16:16 Follow up: Response: No adverse reaction burgess 16:15 Drug: Lipitor (atorvastatin) 20 mg Route: PO; burgess 16:16 Follow up: Response: No adverse reaction burgess 16:16 Follow up: Response: No adverse reaction burgess 16:16 Drug: NS 0.9% 1000 ml Route: IV; Rate: 1 bolus; Site: right antecubital; burgess 17:19 Follow up: IV Status: Completed infusion burgess 17:52 Drug: Nicoderm CQ Patch 21 mg/24 hr 1 patches Route: Transdermal; Site: right thigh; jh6 Disposition Summary: 01/22/22 16:01 Transfer Ordered Transfer Location: [facility] olesya Reason: Higher level of care olesya Condition: Stable olesya Problem: new olesya Symptoms: are unchanged olesya Accepting Physician: TO Dr Oro(01/22/22 19:43) ke1 Diagnosis - Cerebral infarction, unspecified olesya - Aphasia - resolved olesya - Tobacco abuse counseling olesya - Tobacco use olesya - Essential (primary) hypertension olesya Forms: - Medication Reconciliation Form olesya - SBAR form olesya NIH Stroke Scale - NIH Stroke Score Date: 01/22/2022 Time: 14:47 Total Score = 0 1a. Level of Consciousness (LOC) - 0(Alert) 1b. Level of Consciousness (LOC) (Month \\T\\ Age) - 0(Both) 1c. LOC Commands (Open \\T\\ Closes Eyes/Miniature Set Designer) - 0(Both) 2. Best Gaze (Lateral Gaze Paresis) - 0(Normal) 3. Visual Field Loss - 0(No visual loss) 4. Facial Palsy - 0(Normal) 5a. Left Arm: Motor (10-second hold) - 0(No drift) 5b. Right Arm: Motor (10-second hold) - 0(No drift) 6a. Left Leg: Motor (5-second hold - always test supine) - 0(No drift) 6b. Right Leg: Motor (5-second hold - always test supine) - 0(No drift) 7. Limb Ataxia (finger/nose \\T\\ heel/darby - test with eyes open) - 0(Absent) 8. Sensory Loss (pinprick arms/legs/face) - 0(Normal) 9. Best Language: Aphasia (description/naming/reading) - 0(No aphasia) 10. Dysarthria (speech clarity - read or repeat words) - 0(Normal) 11. Extinction and Inattention (visual/tactile/auditory/spatial/personal) - 0(No abnormality) Initials: NIH Stroke Scale - NIH Stroke Score Date: 01/22/2022 Time: 16:06 Total Score = 0 1a. Level of Consciousness (LOC) - 0(Alert) 1b. Level of Consciousness (LOC) (Month \\T\\ Age) - 0(Both) 1c. LOC Commands (Open \\T\\ Closes Eyes/Miniature Set Designer) - 0(Both) 2. Best Gaze (Lateral Gaze Paresis) - 0(Normal) 3. Visual Field Loss - 0(No visual loss) 4. Facial Palsy - 0(Normal) 5a. Left Arm: Motor (10-second hold) - 0(No drift) 5b. Right Arm: Motor (10-second hold) - 0(No drift) 6a. Left Leg: Motor (5-second hold - always test supine) - 0(No drift) 6b. Right Leg: Motor (5-second hold - always test supine) - 0(No drift) 7. Limb Ataxia (finger/nose \\T\\ heel/darby - test with eyes open) - 0(Absent) 8. Sensory Loss (pinprick arms/legs/face) - 0(Normal) 9. Best Language: Aphasia (description/naming/reading) - 0(No aphasia) 10. Dysarthria (speech clarity - read or repeat words) - 0(Normal) 11. Extinction and Inattention (visual/tactile/auditory/spatial/personal) - 0(No abnormality) Initials: olesya Signatures: Dispatcher [employer] Quique Chavez MD MD cha Garcia, Victoria RN RN vg1 Rubi Blanc RN RN jh6 Au-StagerJenny RN RN burgess Heladio Valdez RN RN ke1 Corrections: (The following items were deleted from the chart) 15:39 15:21 Tenecteplase 18 mg IV at per protocol once ordered. olesya olesya 19:43 16:[address] Shorty [email or web address]
--- NOTE | 2022-01-22 16:02 | ER ---
[facility]urse's Notes [facility] Name: Mark Jerez Age: 61 yrs Sex: Male : 1960 Arrival Date: 01/22/2022 Time: 14:38 Bed 3 Private MD: Diagnosis: Cerebral infarction, unspecified;Aphasia-resolved;Tobacco abuse counseling;Tobacco use;Essential (primary) hypertension Presentation: 01/22 14:27 Chief complaint: Patient states: PCP d/c pt clopidogrel about two months ago Patient's vg1 son or daughter states: Left arm numbness with slurred speech that began about 15 minutes ago. Pt states headache. 14:27 Coronavirus screen: Vaccine status: Patient reports receiving the 2nd dose of the covid vg1 vaccine. Client denies travel out of the [place] in the last 14 days. Ebola Screen: Patient denies exposure to infectious person. Patient denies travel to an Ebola-affected area in the 21 days before illness onset. No acute neurological deficit is noted. Initial Sepsis Screen: Does the patient meet any 2 criteria? No. Patient's initial sepsis screen is negative. Does the patient have a suspected source of infection? No. Patient's initial sepsis screen is negative. Risk Assessment: Do you want to hurt yourself or someone else? Patient reports no desire to harm self or others. Onset of symptoms was January 22, 2022 at 14:15. 14:27 Method Of Arrival: Wheelchair vg1 14:27 Acuity: KAVYA 2 vg1 Triage Assessment: 14:41 The onset of the patients symptoms was less than three hours ago. General: Appears vg1 uncomfortable, Behavior is calm, cooperative. Pain: Complains of pain in head. Neuro: Level of Consciousness is awake, alert, obeys commands, Oriented to person, place, time, situation, Reports headache numbness in left arm. 19:42 The onset of the patients symptoms was. ke1 Stroke Activation: Symptom onset < 3 hours Physician: Stroke Attending; Name: ; Notified At: ; Arrived At: Physician: Chief Stroke Resident; Name: ; Notified At: ; Arrived At: Physician: Stroke Resident; Name: ; Notified At: ; Arrived At: Physician: ED Attending; Name: Dr Fry; Notified At: ; Arrived At: Physician: ED Resident; Name: ; Notified At: ; Arrived At: Historical: - Allergies: 14:41 No Known Allergies; vg1 - Home Meds: 14:41 Lisinopril Oral [Active]; vg1 - PMHx: 14:41 Myocardial infarction; Hypertensive disorder; vg1 - PSHx: 14:41 Stented artery; vg1 - Immunization history:: Client reports receiving the 2nd dose of the Covid vaccine. - Social history:: Smoking status: Patient reports the use of cigarette tobacco products, smokes one pack cigarettes per day. - Family history:: not pertinent. Screenin:54 Abuse screen: Denies threats or abuse. Denies injuries from another. Nutritional burgess screening: No deficits noted. Tuberculosis screening: No symptoms or risk factors identified. Fall Risk IV access (20 points). Assessment: 14:47 VAN Scoring: Arm Drift:. Patient has been NPO before screening. The patient is alert, burgess and able to follow commands. The patient does not exhibit slurred or garbled speech. The patient is not exhibiting difficulty speaking. The patient does not exhibit difficulty understanding words. The patient is able to swallow own secretions with no drooling or need for suction. Patient tolerated one teaspoon of water. No drooling, immediate coughing, gurgling, or clearing of the throat was noted. The patient tolerated 90mL of water. No drooling, immediate coughing, gurgling, or clearing of the throat was noted. The patient passed the bedside swallow screening. Oral medications may be given as ordered. Contact Physician for further diet orders. 14:51 Provider notified of bedside swallow screening results: Quique Fry MD. burgess 14:54 General: Appears in no apparent distress. Behavior is. Pain: Complains of pain in face. burgess Neuro: Level of Consciousness is awake, alert, obeys commands, Oriented to person, place, time, situation, Reports headache. 15:30 Reassessment: Patient is alert, oriented x 3, equal unlabored respirations, skin jh6 warm/dry/pink. no s/s at this time pt is having no tingling in l hand or [place] speech is clear Patient denies pain at this time. Patient states feeling better. Patient states symptoms have improved. Vital Signs: 14:27 BP 139 / 81; Pulse 82; Resp 20; Pulse Ox 97% on R/A; Weight 72.57 kg; Height 6 ft. 0 vg1 in. (182.88 cm); Pain 0/10; 14:30 BP 132 / 77; Pulse 76; Resp 18; Pulse Ox 96% ; Pain 0/10; jh6 15:00 BP 134 / 81; Pulse 85; Resp 18; Pulse Ox 100% ; Pain 0/10; jh6 15:47 BP 144 / 85; Pulse 76; Resp 17; Pulse Ox 97% ; Pain 0/10; jh6 14:27 Body Mass Index 21.70 (72.57 kg, 182.88 cm) vg1 NIH Stroke Scale Scores: 14:47 NIHSS Score: 0 burgess 16:06 NIHSS Score: 0 [facility] ED Course: 14:38 Patient arrived in ED. vg1 14:41 Triage completed. vg1 14:41 Quique Fry MD is Attending Physician. olesya 14:41 Arm band placed on. vg1 14:45 Jenny Lindsey, OMAR is Primary Nurse. burgess 14:54 Patient has correct armband on for positive identification. Bed in low position. burgess 14:54 No provider procedures requiring assistance completed. Inserted saline lock: 20 gauge burgess in right antecubital area, using aseptic technique. 14:56 CT Stroke Brain w/o Contrast In Process Unspecified. EDMS 15:04 SARS-COV-2 RT PCR (Document "Date of Onset" if Symptomatic) Sent. burgess 15:18 XRAY Chest (1 view) In Process Unspecified. EDMS 16:00 CT Head Angio In Process Unspecified. EDMS 16:00 CT Neck Angio In Process Unspecified. EDMS 19:42 Patient transferred, IV remains in place. ke1 Administered Medications: 15:03 Drug: NS 0.9% 1000 ml Route: IV; Rate: 1 bolus; Site: right antecubital; burgess 17:19 Follow up: IV Status: Completed infusion burgess 15:03 Dru mg of (foLIC Acid 1 mg, NS 0.9% 10 ml) Route: IVPB; Site: right antecubital; burgess 17:19 Follow up: IV Status: Completed infusion burgess 15:39 CANCELLED (Duplicate Order): Tenecteplase 18 mg IV at per protocol once olesya 16:15 Drug: Aspirin Chewable Tablet 162 mg Route: PO; burgess 16:16 Follow up: Response: No adverse reaction burgess 16:15 Drug: PlaVIX (clopidogrel) 75 mg Route: PO; 16:16 Follow up: Response: No adverse reaction burgess 16:15 Drug: Lipitor (atorvastatin) 20 mg Route: PO; burgess 16:16 Follow up: Response: No adverse reaction burgess 16:16 Follow up: Response: No adverse reaction burgess 16:16 Drug: NS 0.9% 1000 ml Route: IV; Rate: 1 bolus; Site: right antecubital; burgess 17:19 Follow up: IV Status: Completed infusion 17:52 Drug: Nicoderm CQ Patch 21 mg/24 hr 1 patches Route: Transdermal; Site: right thigh; jh6 Medication: 14:54 VIS not applicable for this client. Outcome: 16:01 ER care complete, transfer ordered by olesya 19:42 Transferred by ground EMS ke1 19:42 Condition: stable 19:42 Discharge instructions given to Instructed on the need for transfer. 19:43 Patient left the ED. ke1 NIH Stroke Scale - NIH Stroke Score Date: 01/22/2022 Time: 14:47 Total Score = 0 1a. Level of Consciousness (LOC) - 0(Alert) 1b. Level of Consciousness (LOC) (Month \\T\\ Age) - 0(Both) 1c. LOC Commands (Open \\T\\ Closes Eyes/Shank Scourer) - 0(Both) 2. Best Gaze (Lateral Gaze Paresis) - 0(Normal) 3. Visual Field Loss - 0(No visual loss) 4. Facial Palsy - 0(Normal) 5a. Left Arm: Motor (10-second hold) - 0(No drift) 5b. Right Arm: Motor (10-second hold) - 0(No drift) 6a. Left Leg: Motor (5-second hold - always test supine) - 0(No drift) 6b. Right Leg: Motor (5-second hold - always test supine) - 0(No drift) 7. Limb Ataxia (finger/nose \\T\\ heel/adrby - test with eyes open) - 0(Absent) 8. Sensory Loss (pinprick arms/legs/face) - 0(Normal) 9. Best Language: Aphasia (description/naming/reading) - 0(No aphasia) 10. Dysarthria (speech clarity - read or repeat words) - 0(Normal) 11. Extinction and Inattention (visual/tactile/auditory/spatial/personal) - 0(No abnormality) Initials: aditya NIH Stroke Scale - NIH Stroke Score Date: 01/22/2022 Time: 16:06 Total Score = 0 1a. Level of Consciousness (LOC) - 0(Alert) 1b. Level of Consciousness (LOC) (Month \\T\\ Age) - 0(Both) 1c. LOC Commands (Open \\T\\ Closes Eyes/Shank Scourer) - 0(Both) 2. Best Gaze (Lateral Gaze Paresis) - 0(Normal) 3. Visual Field Loss - 0(No visual loss) 4. Facial Palsy - 0(Normal) 5a. Left Arm: Motor (10-second hold) - 0(No drift) 5b. Right Arm: Motor (10-second hold) - 0(No drift) 6a. Left Leg: Motor (5-second hold - always test supine) - 0(No drift) 6b. Right Leg: Motor (5-second hold - always test supine) - 0(No drift) 7. Limb Ataxia (finger/nose \\T\\ heel/darby - test with eyes open) - 0(Absent) 8. Sensory Loss (pinprick arms/legs/face) - 0(Normal) 9. Best Language: Aphasia (description/naming/reading) - 0(No aphasia) 10. Dysarthria (speech clarity - read or repeat words) - 0(Normal) 11. Extinction and Inattention (visual/tactile/auditory/spatial/personal) - 0(No abnormality) Initials: olesya Signatures: Dispatcher [employer] Quique Chavez MD MD cha Garcia, Victoria, RN RN vg1 Rubi Blanc RN RN jh6 Jenny Lindsey RN RN ha Ebrottie, Kouassi RN RN ke1 Corrections: (The following items were deleted from the chart) 14:43 14:27 Chief complaint: Patient's son or daughter states: Left arm numbness with vg1 slurred speech that began about 15 minutes ago. Pt states headache. vg1
[2022-01-22] MEDS ORDERED: CLOPIDOGREL 75 MG TABLET ONE (16:13)
[2022-01-22] MEDS ORDERED: ASPIRIN 81 MG CHEWABLE TABLET ONE (16:13)
[2022-01-22] MEDS ORDERED: ATORVASTATIN 20 MG TAB ONE (16:13)
[2022-01-22 16:16] LABS: Urine Blood Negative (Negative); Urine Glucose Negative (Negative); Urine Protein Negative (Negative); Urine Specific Gravity 1.025 (1.005-1.030)
--- NOTE | 2022-01-22 16:24 | RAD REPORT ---
EXAM DESCRIPTION: Sean Angio01/22/2022 3:58 pm CLINICAL HISTORY: Slurred speech COMPARISON: None TECHNIQUE: 50 cc Isovue 370 was administered intravenously. 3D MIP reconstruction performed All CT scans are performed using dose optimization technique as appropriate and may include automated exposure control or mA/KV adjustment according to patient size. FINDINGS: Plaque within the left carotid bulb results in an approximately 65% stenosis. Mild plaque within the remainder the common carotid, internal carotid and external carotid arteries b ilaterally. The left vertebral artery is dominant without stenosis. The entire right vertebral artery is very small. IMPRESSION: Moderate plaque within the left carotid bulb The entire right vertebral artery is very small. 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 A chronic dissection can also result in this appearance. NASCET criteria used. Mild 0-49% stenosis Moderate 50-69% stenosis Severe 70-99% stenosis
--- NOTE | 2022-01-22 16:28 | RAD REPORT ---
EXAM DESCRIPTION: CTHead angio01/22/2022 3:58 pm CLINICAL HISTORY: Slurred speech COMPARISON: None TECHNIQUE: CT angiogram of the head was obtained. 3D MIPS reconstruction performed. All CT scans are performed using dose optimization technique as appropriate and may include automated exposure control or mA/KV adjustment according to patient size. 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 The remainder of the basilar, internal carotid, anterior cerebral, middle cerebral and posterior cere bral arteries are normal caliber. An aneurysm is not seen. A significant stenosis is not noted. IMPRESSION: No significant abnormality is displayed
[2022-01-22] MEDS ORDERED: NICOTINE 21 MG/PAT TD ONE (17:53)
[2022-01-22] MEDS ORDERED: ACETYLCYST 20% 800 MG/4 ML VIAL PO SCH (18:00)
[2022-01-22 19:56] VITALS: BP 144/85; O2SAT 97
--- NOTE | 2022-01-23 17:59 | EKG ---
Test Date: 2022-01-22 Test Time: 16:05:49 Platform Supervisor: JAZMYNE MEASUREMENT RESULTS: Intervals: Rate: 70 WY: 150 QRSD: 86 QT: 386 QTc: 416 [place]: P: 79 WY: 150 QRS: -34 T: 37 INTERPRETIVE STATEMENTS: Normal sinus rhythm Left axis deviation Abnormal ECG No previous ECG available for comparison Electronically Signed On 01-23-22 17:57:27 CDT by Salvatore Santana
== END 2022-01-22 19:43 | disposition short-term general hospital (02) ==
LOC: ER 14:24
DX: I63.9 Cerebral infarction, unspecified (principal); I10 Essential (primary) hypertension; R29.700 NIHSS score 0; I25.2 Old myocardial infarction; Z72.0 Tobacco use; Z71.6 Tobacco abuse counseling; Z20.822 Contact with and (suspected) exposure to COVID-19
CPT/HCPCS: 36415; 70450; 70496; 70498; 71045; 80048; 80076; 81003; 83735; 83880; 84484; 85025; 85610; 93005; 96365; 96366; 99285; J7030; Q9967; U0003